=== PATIENT | female | born 1960 | race Asian ===

== ENCOUNTER 2016-10-30 10:39 | Observation (INO) | payer BC ==
[2016-10-30 10:47] VITALS: BMI 21.4
[2016-10-30] MEDS ORDERED: SODIUM CHLORIDE 1,000 ML IV STA (11:52)
[2016-10-30 12:10] LABS: BASOPHIL 1.3 % (0-2.0); EOSINOPHIL 3.2 % (0-4.5); MCH 32.2 pg (25.7-33.7); MCHC 34.3 g/dl (32.0-36.0); MEAN CELL VOLUME 93.9 fl (80-96); MEAN PLT VOLUME 8.2 fl (7.5-11.1); PLATELET COUNT 262 K/MM3 (134-434); RDW 13.3 % (11.6-15.6); WHITE BLOOD COUNT 9.6 K/mm3 (4.0-10.0)
[2016-10-30 12:26] LABS: INR 0.99 (0.82-1.09); PROTHROMBIN TIME (PATIENT) 10.9 SEC (9.98-11.88)
[2016-10-30 12:40] LABS: ALBUMIN 4.1 g/dl (3.4-5.0); ANION GAP 8 (8-16); BILIRUBIN,TOTAL 0.5 mg/dL (0.2-1.0); CO2 29 mmol/L (21-32); CREATININE 0.8 mg/dL (0.55-1.02); GLUCOSE,RANDOM 87 mg/dL (74-106); MAGNESIUM 2.5 mg/dL (1.8-2.4); SGOT/AST 20 U/L (15-37); SGPT/ALT 28 U/L (12-78); TOT PROT 7.5 g/dl (6.4-8.2)
[2016-10-30 12:43] LABS: ALK PHOS 67 U/L (45-117); CPK 92 IU/L (26-192); TROPONIN I < 0.02 ng/ml (0.00-0.05)
--- NOTE | 2016-10-30 14:01 | EKG ---
Test Reason : Blood Pressure : / mmHG Vent. Rate : 061 BPM Atrial Rate : 061 BPM P-R Int : 170 ms QRS Dur : 074 ms QT Int : 398 ms P-R-T Axes : 053 024 043 degrees QTc Int : 400 ms NORMAL SINUS RHYTHM NORMAL ECG NO PREVIOUS ECGS AVAILABLE Confirmed by JOSSIE SOTO MD ([id number]) on 10/30/2016 2:01:27 PM Referred By: Confirmed By:JOSSIE SOTO MD
[2016-10-30] MEDS ORDERED: MECLIZINE HCL 25 MG TABLET (FP) PO ONE (14:40)
[2016-10-30] MEDS ORDERED: ACETAMINOPHEN 1000 MG/100 ML VIAL (NON FORMULARY) IVPB ONE (14:40)
[2016-10-30] MEDS ORDERED: ACETAMINOPHEN INJECTION 100 ML IVPB ONE (14:57)
--- NOTE | 2016-10-30 14:57 | PDOC ---
History of Present Illness - General Chief Complaint: Syncope/Near Syncope Stated Complaint: HEADACHE ON RIGHT SIDE Time Seen by Provider: 10/30/16 11:32 History Source: Patient Exam Limitations: No Limitations - History of Present Illness Initial Comments: 10/30/16 13:11 56-year-old female presents to the ED status post questionable syncopal episode. Patient states was walking when she is unsure if she tripped on the sidewalk causing her to land on her left side striking the ground. Patient states awoke on the floor and immediately stood up without complaints of dizziness, chest pain, nausea or visual changes. Patient did complain of left neck and left parietal discomfort which she describes as a pressure and throbbing pain. Patient states2 previous episodes of dizziness while ambulating a few months ago with no medical evaluation. patient denies history of hypertension and osteoporosis. Presenting Symptoms: Syncope Timing/Duration: reports: resolved prior to arrival Severity/Quality: reports: moderate Chest Pain Radiation: reports: no radiation Activities at Onset: reports: none Prior Chest Pain/Cardiac Workup: reports: Echocardiography Past History - Travel Traveled outside of the country in the last 30 days: No Close contact w/someone who was outside of country & ill: No - Past Medical History Allergies/Adverse Reactions: Allergies Allergy/AdvReac Type Severity Reaction Status Date / Time Sulfa (Sulfonamide Allergy Verified 10/30/16 10:43 Antibiotics) [Sulfa(Sulfonamide Antibiotics)] Home Medications: Ambulatory Orders Aspirin [ASA -] 81 mg PO DAILY 10/30/16 Losartan Potassium 50 mg PO BID 10/30/16 Anemia: No Asthma: No Cancer: No Cardiac Disorders: No CVA: No COPD: No CHF: No DVT: No Dementia: No Diabetes: No Dialysis: No GI Disorders: No Disorders: No HTN: Yes Hypercholesterolemia: No HIV: No Kidney Stones: No Liver Disease: No Psychiatric Problems: No Seizures: No Thyroid Disease: No Lung CA: No Other medical history: osteoporosis - Surgical History Abdominal Surgery: Yes Cholecystectomy: Yes - Family Disease History Family Disease History: Other: Mother (vertigo) - Psycho/Social/Smoking Cessation Hx Anxiety: No Suicidal Ideation: No Smoking Status: No Smoking History: Never smoked Have you smoked in the past 12 months: No Number of Cigarettes Smoked Daily: 0 Information on smoking cessation initiated: No Hx Alcohol Use: No Drug/Substance Use Hx: No Substance Use Type: None Patient Lives Alone: No Lives with/in: spouse/SO Cardiac Specific PMH - Complaint Specific PMHX Angina: No Cardiac Arrhythmia: No GERD: No Peripheral Vascular Disease: No Review of Systems - Review of Systems Able to Perform ROS?: No Constitutional: No: Symptoms Reported HEENTM: No: Symptoms Reported Respiratory: No: Symptoms reported Cardiac (ROS): Yes: Lightheadedness (intermittent x2 a few months ago), Syncope ABD/GI: No: Nausea, Poor Appetite, Poor Fluid Intake, Vomiting Musculoskeletal: Yes: Neck Pain (left) Integumentary: No: Symptoms Reported Neurological: Yes: Headache (left parietal) Hematologic/Lymphatic: No: Symptoms Reported *Physical Exam - Vital Signs Last Vital Signs Temp Pulse Resp BP Pulse Ox 97.9 F 75 18 131/79 99 10/30/16 10:43 10/30/16 14:00 10/30/16 14:00 10/30/16 14:00 10/30/16 14:00 - Physical Exam General Appearance: Yes: Nourished, Appropriately Dressed. No: Apparent Distress HEENT: positive: EOMI, ANEESH, TMs Normal, Pharynx Normal. negative: Pale Conjunctivae Neck: positive: Supple, Tender lateral (left paraspinious). negative: Tender midline Respiratory/Chest: positive: Lungs Clear, Normal Breath Sounds. negative: Respiratory Distress, Accessory Muscle Use Cardiovascular: positive: Regular Rhythm, Regular Rate. negative: Murmur Gastrointestinal/Abdominal: positive: Soft. negative: Tenderness Extremity: positive: Normal Capillary Refill. negative: Pedal Edema Integumentary: positive: Normal Color, Warm, Moist Neurologic: positive: Normal Mood/Affect, Motor Strength 5/5, Other (negative Hallpike's) Deep Tendon Reflexes: Knee (L): 2+, Knee (R): 2+ Heart Score/ECG Review - History History: Slightly suspicious - Electrocardiogram EKG: Normal - Age Age: 45-65 - Risk Factors Risk Factors Heart Score: Yes Hx Hypertension - ECG Intrepretation Rhythm: Regular Rhythm (rate 84. nsr) ED Treatment Course - LABORATORY CBC & Chemistry Diagram: 10/30/16 12:05 10/30/16 12:05 - ADDITIONAL ORDERS Additional order review: Laboratory Results 10/30/16 10/30/16 10/30/16 14:13 12:05 12:05 INR 0.99 Sodium 142 Potassium 4.6 Chloride 105 Carbon Dioxide 29 Anion Gap 8 BUN 14 Creatinine 0.8 Creat Clearance w eGFR > 60 POC Glucometer [id number] Random Glucose 87 Calcium 9.0 Magnesium 2.5 H Total Bilirubin 0.5 AST 20 ALT 28 Alkaline Phosphatase 67 Creatine Kinase 92 Troponin I < 0.02 Total Protein 7.5 Albumin 4.1 10/30/16 10/30/16 14:13 12:05 RBC 3.97 MCV 93.9 MCHC 34.3 RDW 13.3 MPV 8.2 Neutrophils % 55.0 Lymphocytes % 32.3 Monocytes % 8.2 Eosinophils % 3.2 Basophils % 1.3 POC Glucometer [phone] - RADIOLOGY Radiology Studies Ordered: Category Date Time Status CERVICAL SPINE CT W/O CONTR [CT] Stat CT Scan 10/30/16 11:[address] WITHOUT CONTRAST [CT] Stat CT Scan 10/30/16 11:53 Completed CHEST X-RAY PORTABLE* [RAD] Stat Radiology 10/30/16 11:53 Completed - Medications Given in the ED: ED Medications Discontinued Medications Generic Name Dose Route Start Last Admin Trade Name Freq PRN Reason Stop Dose Admin Acetaminophen 1,000 mg 10/30/16 14:40 10/30/16 14:55 Ofirmev Injection - IVPB 10/30/16 14:41 1,000 mg ONCE ONE Administration Diazepam 5 mg 10/30/16 17:01 10/30/16 17:23 Valium - PO 10/30/16 17:02 5 mg ONCE ONE Administration Sodium Chloride 1,000 mls @ 1,000 mls/hr 10/30/16 11:52 10/30/16 12:09 Normal Saline - IV 10/30/16 12:51 1,000 mls/hr ASDIR STA Administration Ketorolac Tromethamine 30 mg 10/30/16 17:01 10/30/16 17:21 Toradol Injection - IVPUSH 10/30/16 17:02 30 mg ONCE ONE Administration Meclizine HCl 25 mg 10/30/16 14:40 10/30/16 14:55 Antivert - PO 10/30/16 14:41 25 mg ONCE ONE Administration Medical Decision Making - Medical Decision Making 10/30/16 13:18 Patient with questionable syncopal episode today. Patient now complaining of left-sided neck pain and left parietal discomfort. Patient on clinical exam had no reproducible pain except for the left paraspinous muscle. Patient had no no focal deficits. Patient concerning for closed head injury and syncopal episode. Patient was ordered for head CT, cervical CT and cardiac workup. 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 Houston 10/30/16 15:21 Laboratory Tests 10/30/16 10/30/16 10/30/16 12:05 12:05 12:05 WBC 9.6 Hgb 12.8 Hct 37.3 Neutrophils % 55.0 INR 0.99 Sodium 142 Potassium 4.6 Chloride 105 Carbon Dioxide 29 Anion Gap 8 BUN 14 Creatinine 0.8 Creat Clearance w eGFR > 60 POC Glucometer Random Glucose 87 Calcium 9.0 Magnesium 2.5 H Total Bilirubin 0.5 AST 20 ALT 28 Alkaline Phosphatase 67 Troponin I < 0.02 10/30/16 14:13 WBC Hgb Hct Neutrophils % INR Sodium Potassium Chloride Carbon Dioxide Anion Gap BUN Creatinine Creat Clearance w eGFR POC Glucometer 161.22790 Random Glucose Calcium Magnesium Total Bilirubin AST ALT Alkaline Phosphatase Troponin I Head CT negative for acute findings. Cervical CT shows narrowing with nerve root impingement at C5-C6. Patient now complaining of mild dizziness with minimal movement along with worsening headache. Patient with negative Hallpike repeated. Patient ordered for IV Tylenol for headache and Meclizine. Case discussed with Dr. Houston who states to admit to telemetry. Awaiting callback from Dr. Bearden to discuss recommendations of consultation to neurology. 10/30/16 17:44 Pt states minimal improvement of dizziness and headache. pt ordered for valium secondary to left cervical soreness/stiffness and toradol for headache. Pt also recommended to eat. went to cafe to purchase food. *DC/Admit/Observation/Transfer Diagnosis at time of Disposition: Syncope Qualifiers: Encounter type: initial encounter Closed head injury Qualifiers: Encounter type: initial encounter Qualified Code(s): S09.90XA - Unspecified injury of head, initial encounter - Discharge Dispostion Admit: Yes
[2016-10-30] MEDS ORDERED: MECLIZINE HCL 25 MG TABLET (FP) ONE (14:58)
--- NOTE | 2016-10-30 16:39 | PDOC ---
*Physical Exam - Vital Signs Last Vital Signs Temp Pulse Resp BP Pulse Ox 97.9 F 75 18 131/79 99 10/30/16 10:43 10/30/16 14:00 10/30/16 14:00 10/30/16 14:00 10/30/16 14:00 ED Treatment Course - LABORATORY CBC & Chemistry Diagram: 10/30/16 12:05 10/30/16 12:05 - ADDITIONAL ORDERS Additional order review: Laboratory Results 10/30/16 10/30/16 10/30/16 14:13 12:05 12:05 INR 0.99 Sodium 142 Potassium 4.6 Chloride 105 Carbon Dioxide 29 Anion Gap 8 BUN 14 Creatinine 0.8 Creat Clearance w eGFR > 60 POC Glucometer 161.94948 Random Glucose 87 Calcium 9.0 Magnesium 2.5 H Total Bilirubin 0.5 AST 20 ALT 28 Alkaline Phosphatase 67 Creatine Kinase 92 Troponin I < 0.02 Total Protein 7.5 Albumin 4.1 10/30/16 10/30/16 14:13 12:05 RBC 3.97 MCV 93.9 MCHC 34.3 RDW 13.3 MPV 8.2 Neutrophils % 55.0 Lymphocytes % 32.3 Monocytes % 8.2 Eosinophils % 3.2 Basophils % 1.3 POC Glucometer 161.01442 - Medications Given in the ED: ED Medications Discontinued Medications Generic Name Dose Route Start Last Admin Trade Name Jonathan PRN Reason Stop Dose Admin Acetaminophen 1,000 mg 10/30/16 14:40 10/30/16 14:55 Ofirmev Injection - IVPB 10/30/16 14:41 1,000 mg ONCE ONE Administration Sodium Chloride 1,000 mls @ 1,000 mls/hr 10/30/16 11:52 10/30/16 12:09 Normal Saline - IV 10/30/16 12:51 1,000 mls/hr ASDIR STA Administration Meclizine HCl 25 mg 10/30/16 14:40 10/30/16 14:55 Antivert - PO 10/30/16 14:41 25 mg ONCE ONE Administration Medical Decision Making - Medical Decision Making 10/30/16 16:38 Patient seen and examined with YANN Doshi. Agree with her history, assessment and plan. *DC/Admit/Observation/Transfer Diagnosis at time of Disposition: Syncope Qualifiers: Encounter type: initial encounter Closed head injury Qualifiers: Encounter type: initial encounter Qualified Code(s): S09.90XA - Unspecified injury of head, initial encounter - Referrals Referrals: Saturnino Danielson MD [Primary Care Provider] - - Patient Instructions - Post Discharge Activity - Attestations Physician Attestion: 10/30/16 16:39 I, Dr. Harmony Spence MD, attest that this document has been prepared under my direction and personally reviewed by me in its entirety. I further attest, that it accurately reflects all work, treatment, procedures and medical decision -making performed by me.
[2016-10-30] MEDS ORDERED: KETOROLAC TROMETHAMINE 30 MG/1 ML VIAL IVPUSH ONE (17:01)
[2016-10-30] MEDS ORDERED: diazePAM 5 MG TABLET PO ONE (17:01)
[2016-10-30] MEDS ORDERED: KETOROLAC TROMETHAMINE 30 MG/1 ML VIAL ONE (17:27)
[2016-10-30] MEDS ORDERED: diazePAM 5 MG TABLET ONE (17:27)
[2016-10-30 17:58] LABS: URINE APPEARANCE CLEAR; URINE BILIRUBIN NEGATIVE (NEGATIVE); URINE BLOOD NEGATIVE (NEGATIVE); URINE COLOR STRAW; URINE GLUCOSE (UA) NEGATIVE (NEGATIVE); URINE KETONE NEGATIVE (NEGATIVE); URINE LEUK ESTERASE NEGATIVE (NEGATIVE); URINE NITRITE NEGATIVE (NEGATIVE); URINE PROTEIN NEGATIVE (NEGATIVE); URINE UROBILINOGEN NEGATIVE mg/dL (0.2-1.0)
--- NOTE | 2016-10-30 21:29 | CON.CARD ---
Cardiology Consult (text) - Consultation Consultation Note: Case d/w ER, records reviewed. 56F known to me from office, followed for HTN. Previous cardiac w/u basically unremarkable. Fell while walking, unsure if she tripped landing on her left side. Unclear if syncope vs mechanical fall by her history. Vitals, head CT, ECG, labs normal on presentation. PLAN: 1. TELE x 24 hours r/o arrhythmia 2. Echo for EF assessment. 3. Carotid US. 4. Orthostatics. 5. Consider Neuro eval. Further evaluation in AM. If above diagnostics normal and she can ambulate without issues consider d/c home with outpatient f/u.
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
--- NOTE | 2016-10-31 08:36 | PN ---
Progress Note, Physician Chief Complaint: no chest pain or SOB TELE: NSR Denies antecedent chest pain or SOB. [place] herself swaying to left side and this has happened several times in the last month. Has felt more "clumsy" lately. She did have some associated palpitations, but unclear if these preceded the fall or occurred after as result of anxiety ECG w/ normal QT. History of Present Illness: BP running low - Current Medication List Current Medications: Active Medications Aspirin (Ecotrin -) 81 mg PO DAILY LYDIA Losartan Potassium (Cozaar -) 50 mg PO DAILY LYDIA - Objective Vital Signs: Vital Signs Temperature 98.1 F 10/31/16 06:00 Pulse Rate 80 10/31/16 06:00 Respiratory Rate 20 10/31/16 06:00 Blood Pressure 96/58 10/31/16 06:00 O2 Sat by Pulse Oximetry (%) 98 10/30/16 21:00 Constitutional: Yes: No Distress, Calm Neck: Yes: Supple, Other (No bruits) Cardiovascular: Yes: Regular Rate and Rhythm, S1, S2 (No murmurs) Respiratory: Yes: CTA Bilaterally Gastrointestinal: Yes: Soft (non-tender) Edema: No Peripheral Pulses WNL: Yes Neurological: Yes: Other (? subtle left facial droop) Labs: CBC, BMP 10/31/16 06:05 INR, PTT INR 0.99 (0.82-1.09) 10/30/16 12:05 Laboratory Tests 10/30/16 10/30/16 10/31/16 12:05 12:05 06:05 WBC 9.6 Hct 37.3 Plt Count 262 Potassium 4.2 Chloride 113 H Creatinine 0.8 Pending Creatine Kinase 92 Troponin I < 0.02 - ....Imaging Cat Scan: Report Reviewed EKG: Image Reviewed Assessment/Plan IMP: Fall, with recent gait instability Doubt arrhythmia REC: To complete 24 hours tele, thus far negative Echo and carotid US. Neuro consult Hold BP meds today. Hydrate.
[2016-10-31 08:57] LABS: ALBUMIN 3.5 g/dl (3.4-5.0); ALK PHOS 57 U/L (45-117); ANION GAP 7 (8-16); BILIRUBIN,TOTAL 0.5 mg/dL (0.2-1.0); CALCIUM 8.5 mg/dL (8.5-10.1); CHOLESTEROL 177 mg/dL (50-200); CO2 23 mmol/L (21-32); GLUCOSE,RANDOM 146 mg/dL (74-106); LDL CHOLESTEROL (ONLY SJRH) 103 mg/dL (5-100); SGOT/AST 15 U/L (15-37); SGPT/ALT 22 U/L (12-78); THYROID STIMULATING HORMONE 0.79 uIU/ml (0.358-3.74); THYROXINE (T4) 9.3 ug/dl (4.8-13.9); TOT PROT 6.4 g/dl (6.4-8.2)
[2016-10-31] MEDS: ASPIRIN COATED 81 MG TABLET.EC PO SCH (09:32)
[2016-10-31] MEDS ORDERED: LOSARTAN POTASSIUM 50 MG TABLET (FP) PO SCH (10:00)
[2016-10-31] MEDS ORDERED: diazePAM 5 MG TABLET PO PRN (17:17)
[2016-10-31] MEDS ORDERED: ARTIFICIAL TEARS (POLYVINYL ALCOHOL 1.4%) OPTH DROPS OU PRN (17:18)
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
[2016-11-01 09:10] VITALS: BP 120/64; PULSE 88; TEMP 98.4
[2016-11-01] MEDS: ASPIRIN COATED 81 MG TABLET.EC PO SCH (09:11)
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
--- NOTE | 2016-11-01 10:41 | PN ---
Progress Note (short form) - Note Progress Note: patient seen and examined Cardio note reviewed Neuro note reviewed discussed with patient also discussed out patient follow up Vital Signs Period Temp Pulse Resp BP Sys/Landis Pulse Ox Last 24 Hr 98.0 F-98.6 F 78-88 18-18 113-127/59-80 96 Heart reg lung clear abd soft non tender ext FROM no gross deficit Active Medications Artificial Tears (Artificial Tears) 2 drop OU QID PRN PRN Reason: DRY EYES Last Admin: 10/31/16 18:37 Dose: 2 drop Aspirin (Ecotrin -) 81 mg PO DAILY LYDIA Last Admin: 11/01/16 09:11 Dose: 81 mg Diazepam (Valium -) 5 mg PO Q8H PRN PRN 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 Left C6 radiculopathy 2. R/O spondylytic cervical Myelopathy 3. Idiopathic calcification of the Basal Ganglia 4. Early extrapyramidal signs/ Features of "Restless" Left arm. Plans discussed with patient she will follow up with Dr Fernandez scheduled for Endo next week Dr Patel Problem List - Problems (1) Cervical spinal stenosis Code(s): M48.02 - SPINAL STENOSIS, CERVICAL REGION (2) Syncope Code(s): R55 - SYNCOPE AND COLLAPSE Qualifiers: Encounter type: initial encounter (3) Paresthesia and pain of left extremity Code(s): M79.609 - PAIN IN UNSPECIFIED LIMB R20.2 - PARESTHESIA OF SKIN (4) Hypertension Code(s): I10 - ESSENTIAL (PRIMARY) HYPERTENSION Qualifiers: Hypertension type: essential hypertension Qualified Code(s): I10 - Essential (primary) hypertension (5) Unstable gait Code(s): R26.81 - UNSTEADINESS ON FEET
== END 2016-11-01 13:07 | disposition home or self-care (01) ==
LOC: JER 10:39 → INTOOBSV 15:28 → JERBED 15:28 → UNDOADMOB 15:28 → JERBED 17:15 → J4W 18:13 → JERBED 18:13
PROVIDERS: ADMIT Family Medicine; ATTEND Family Medicine
PROC: 3E0333Z Introduction of Anti-inflammatory into Peripheral Vein, Percutaneous Approach (ICD-10-PCS; principal; 2016-10-30)
PROC: 3E033NZ Introduction of Analgesics, Hypnotics, Sedatives into Peripheral Vein, Percutaneous Approach (ICD-10-PCS; 2016-10-30)
PROC: 3E0337Z Introduction of Electrolytic and Water Balance Substance into Peripheral Vein, Percutaneous Approach (ICD-10-PCS; 2016-10-30)
DX: R55 Syncope and collapse (principal); S09.90XA Unspecified injury of head, initial encounter; W01.0XXA Fall on same level from slipping, tripping and stumbling without subsequent striking against object, initial encounter; Y93.01 Activity, walking, marching and hiking; Y92.89 Other specified places as the place of occurrence of the external cause; I10 Essential (primary) hypertension; M81.0 Age-related osteoporosis without current pathological fracture; Z79.82 Long term (current) use of aspirin; Z88.2 Allergy status to sulfonamides; R20.2 Paresthesia of skin; M79.602 Pain in left arm; R26.81 Unsteadiness on feet; M54.12 Radiculopathy, cervical region; M48.02 Spinal stenosis, cervical region
CPT/HCPCS: 36415; 70450-TC; 70551-TC; 71010-TC; 72125-TC; 72141-TC; 80053; 80061; 81003; 83036; 83721; 83735; 84436; 84443; 84484; 85025; 85610; 93005; 93010; 93306-TC; 93880-TC; 99285-25; G0378

== ENCOUNTER 2023-12-04 04:59 | Day surgery (SDC) | payer BC ==
[2023-12-02 13:14] VITALS: BMI 21.4
[2023-12-04 09:29] VITALS: TEMP 98
[2023-12-04 09:39] VITALS: BP 104/64; PULSE 64; RESP 15
== END 2023-12-04 09:39 | disposition home or self-care (01) ==
LOC: JASU-ENDO 04:59
PROVIDERS: ATTEND Internal Medicine Gastroenterology
PROC: 0DBN8ZX Excision of Sigmoid Colon, Via Natural or Artificial Opening Endoscopic, Diagnostic (ICD-10-PCS; principal; 2023-12-04 07:30)
DX: Z12.11 Encounter for screening for malignant neoplasm of colon (principal); D12.5 Benign neoplasm of sigmoid colon
CPT/HCPCS: 88305-TC